=== PATIENT | female | born 1995 | race American Indian/Alaskan Native ===

== ENCOUNTER 2017-01-22 13:14 | Emergency (ER) | payer MEDICAID ==
[2017-01-22 13:36] VITALS: BP 100/62
[2017-01-22 14:11] LABS: Basophils % (Auto) 0.7 % (0.0-1.8); Eosinophils % (Auto) 2.4 % (0.0-4.3); Hematocrit 36.6 % (30.3-42.9); Hemoglobin 12.1 gm/dl (10.1-14.3); Mean Corpuscular HGB Conc 33 % (30-34); Mean Corpuscular Hemoglobin 29 pg (28-32); Mean Corpuscular Volume 88 fl (79-97); Platelet Count 308 K/mm3 (140-440); Red Blood Count 4.17 M/mm3 (3.65-5.03); Red Cell Distribution Width 12.8 % (13.2-15.2); White Blood Count 6.3 K/mm3 (4.5-11.0)
[2017-01-22 14:22] LABS: INR 1.01 (0.87-1.13)
[2017-01-22 14:23] LABS: Partial Thromboplastin Time 31.8 Sec. (24.2-36.6)
[2017-01-22 14:29] LABS: Alanine Aminotransferase 9 units/L (7-56); Albumin 4.3 g/dL (3.9-5); Albumin/Globulin Ratio 1.3 %; Alkaline Phosphatase 66 units/L (35-129); Anion Gap 18 mmol/L; Blood Urea Nitrogen 8 mg/dL (7-17); Carbon Dioxide 25 mmol/L (22-30); Chloride 100.2 mmol/L (98-107); Glucose 88 mg/dL (65-100); Lipase 23 units/L (13-60); Potassium 3.7 mmol/L (3.6-5.0); Sodium 139 mmol/L (137-145); Total Protein 7.6 g/dL (6.3-8.2)
[2017-01-22 18:55] LABS: Bilirubin,Urine Negative (Negative); Blood,Urine Negative (Negative); Ketones,Urine Negative (Negative)
[2017-01-22 18:56] LABS: Leukocyte Esterase,Urine Negative (Negative); Mucus,Urine 1+ /HPF; Nitrite,Urine Negative (Negative); Urobilinogen,Urine < 2.0 mg/dL (<2.0)
--- NOTE | 2017-01-24 01:34 | ED Elopement Review ---
ED Pt Elopement review - Results review Lab results: Laboratory Tests 01/22/17 01/22/17 01/22/17 13:45 13:45 13:45 WBC 6.3 RBC 4.17 Hgb 12.1 Hct 36.6 MCV 88 MCH 29 MCHC 33 RDW 12.8 L Plt Count 308 Lymph % (Auto) 40.9 H [place] % (Auto) 6.6 Eos % (Auto) 2.4 Baso % (Auto) 0.7 Lymph # 2.6 [place] # 0.4 Eos # 0.2 Baso # 0.0 Seg Neutrophils % 49.4 Seg Neutrophils # 3.1 PT INR APTT D-Dimer Sodium 139 Potassium 3.7 Chloride 100.2 Carbon Dioxide 25 Anion Gap 18 BUN 8 Creatinine 0.5 L Estimated GFR > 60 BUN/Creatinine Ratio 16.00 Glucose 88 Calcium 9.0 Total Bilirubin 0.40 AST 17 ALT 9 Alkaline Phosphatase 66 Troponin T < 0.010 Total Protein 7.6 Albumin 4.3 Albumin/Globulin Ratio 1.3 Lipase 23 Urine Color Urine Turbidity Urine pH Ur Specific [place] Urine Protein Urine Glucose (UA) Urine Ketones Urine Blood Urine Nitrite Urine Bilirubin Urine Urobilinogen Ur Leukocyte Esterase Urine WBC (Auto) Urine RBC (Auto) U Epithel Cells (Auto) Urine Mucus 01/22/17 01/22/17 13:48 Unknown WBC RBC Hgb Hct MCV MCH MCHC RDW Plt Count Lymph % (Auto) [place] % (Auto) Eos % (Auto) Baso % (Auto) Lymph # [place] # Eos # Baso # Seg Neutrophils % Seg Neutrophils # PT 13.2 INR 1.01 APTT 31.8 D-Dimer < 135.00 Sodium Potassium Chloride Carbon Dioxide Anion Gap BUN Creatinine Estimated GFR BUN/Creatinine Ratio Glucose Calcium Total Bilirubin AST ALT Alkaline Phosphatase Troponin T Total Protein Albumin Albumin/Globulin Ratio Lipase Urine Color Yellow Urine Turbidity Clear Urine pH 5.0 Ur Specific [place] 1.035 H Urine Protein 30 mg/dl Urine Glucose (UA) Negative Urine Ketones Negative Urine Blood Negative Urine Nitrite Negative Urine Bilirubin Negative Urine Urobilinogen < 2.0 Ur Leukocyte Esterase Negative Urine WBC (Auto) 1.0 Urine RBC (Auto) 0.0 U Epithel Cells (Auto) 5.0 Urine Mucus 1+ - Call Back decision Pt Call Back Decision: No action required
== END 2017-01-22 22:20 | disposition left against medical advice (07) ==
LOC: ED 13:14
DX: R07.9 Chest pain, unspecified (principal); Z53.21 Procedure and treatment not carried out due to patient leaving prior to being seen by health care provider
CPT/HCPCS: 36415; 80053; 81001; 83690; 84484; 85025; 85379; 85610; 85730; 93005; 93010

== ENCOUNTER 2017-01-26 01:33 | Emergency (ER) | payer MEDICAID ==
[2017-01-26 01:44] VITALS: BP 104/60
[2017-01-26 03:24] LABS: Basophils % (Auto) 0.7 % (0.0-1.8); Eosinophils % (Auto) 2.3 % (0.0-4.3); Hemoglobin 11.9 gm/dl (10.1-14.3); Mean Corpuscular HGB Conc 33 % (30-34); Mean Corpuscular Hemoglobin 29 pg (28-32); Mean Corpuscular Volume 89 fl (79-97); Platelet Count 299 K/mm3 (140-440); Red Blood Count 4.07 M/mm3 (3.65-5.03); Red Cell Distribution Width 13.3 % (13.2-15.2)
[2017-01-26 03:45] LABS: Anion Gap 19 mmol/L; Blood Urea Nitrogen 8 mg/dL (7-17); Calcium 8.9 mg/dL (8.4-10.2); Carbon Dioxide 24 mmol/L (22-30); Chloride 102.1 mmol/L (98-107); Glucose 112 mg/dL (65-100); Potassium 3.5 mmol/L (3.6-5.0); Sodium 142 mmol/L (137-145)
== END 2017-01-26 03:30 | disposition left against medical advice (07) ==
LOC: ED 01:33
DX: R07.9 Chest pain, unspecified (principal); Z53.21 Procedure and treatment not carried out due to patient leaving prior to being seen by health care provider
CPT/HCPCS: 36415; 80048; 84484; 85025; 93005; 93010

== ENCOUNTER 2021-12-04 23:41 | Emergency (ER) | payer MEDICAID ==
[2021-12-05 00:06] VITALS: BP 111/49
== END 2021-12-05 02:00 | disposition left against medical advice (07) ==
LOC: ED 23:41
DX: M25.512 Pain in left shoulder (principal); M25.511 Pain in right shoulder; Z53.21 Procedure and treatment not carried out due to patient leaving prior to being seen by health care provider

== ENCOUNTER 2021-12-05 16:19 | Emergency (ER) | payer MEDICAID ==
[2021-12-05 16:38] VITALS: BP 113/47
== END 2021-12-06 14:49 | disposition left against medical advice (07) ==
LOC: ED 16:19
DX: R42 Dizziness and giddiness (principal); Z53.21 Procedure and treatment not carried out due to patient leaving prior to being seen by health care provider